=== PATIENT | male | born 1930 | race Caucasian/White ===

== ENCOUNTER 2018-05-24 11:45 | Emergency (ER) ==
[2018-05-24 11:52] VITALS: BP 182/98; TEMP 97.9; BMI 24.0
[2018-05-24] MEDS ORDERED: LIDOCAINE HCL 1% SDV SUBCUT STA (11:58)
--- NOTE | 2018-05-24 12:01 | ED.PDOC ---
General ED Provider: Dr. FRANKO PATEL Chief Complaint: Fall Stated Complaint: HEAD INJURY Time Seen by Physician: 12:00 Mode of Arrival: Wheelchair Information Source: Patient Exam Limitations: No limitations Nursing and Triage Documentation Reviewed and Agree: Yes Does patient meet sepsis criteria?: No System Inflammatory Response Syndrome: Not Applicable Sepsis Protocol: For patient's 13 years and over: Temp is 96.8 and below OR 101 and greater Pulse >90 BPM Resp >20/minute Acutely Altered Mental Status Are patient's symptoms suggestive of a new infection, such as: -Pneumonia -Skin, Soft Tissue -Endocarditis -UTI -Bone, Joint Infection -Implantable Device -Acute Abdominal Infection -Wound Infection -Meningitis -Blood Stream Catheter Infection -Unknown Skin Complaint Exam - Laceration/Head/Facial Complaint/Exam Location of Injury: Forehead Mechanism of Injury: Laceration Onset/Duration: 1 hr , NO L.O.C. Symptoms Are: Still present Initial Severity: Mild Current Severity: Mild Aggravating: None Alleviating: None Associated Signs and Symptoms: Denies: Fever, Chills, Erythema, Numbness, Tingling Differential Diagnoses: Laceration Review of Systems - Review Of Systems Constitutional: Reports: No symptoms Eyes: Reports: No symptoms Ears, Nose, Mouth, Throat: Reports: No symptoms Respiratory: Reports: No symptoms Cardiac: Reports: No symptoms GI: Reports: No symptoms : Reports: No symptoms Musculoskeletal: Reports: No symptoms Skin: Reports: Other (LACERATION FOREHEAD ) Neurological: Reports: No symptoms Endocrine: Reports: No symptoms Hematologic/Lymphatic: Reports: No symptoms All Other Systems: Reviewed and Negative Past Medical History - Past Medical History Previously Healthy: Yes Endocrine: Reports: Dyslipidemia Cardiovascular: Reports: Hypertension Respiratory: Reports: None Hematological: Reports: None Gastrointestinal: Reports: None Genitourinary: Reports: None Neuro/Psych: Reports: None Musculoskeletal: Reports: None Cancer: Reports: None - Surgical History General Surgical History: Reports: None - Family History Family History: Reports: None - Social History Smoking Status: Never smoker Hx Substance Use: No Alcohol Screening: None - Immunizations Tetanus Shot up to Date: Yes Physical Exam - Physical Exam Appearance: Well-appearing, No pain distress, Well-nourished Eyes: RAVINDRA, EOMI, Conjunctiva clear ENT: Ears normal, Nose normal, Oropharynx normal Respiratory: Airway patent, Breath sounds clear, Breath sounds equal, Respirations nonlabored Cardiovascular: RRR, Pulses normal, No rub, No murmur GI/: Soft, Nontender, No masses, Bowel sounds normal, No Organomegaly Musculoskeletal: Normal strength, ROM intact, No edema, No calf tenderness Skin: Warm, Dry (LACERATION SEE PHOTO) Neurological: Sensation intact, Motor intact, Reflexes intact, Cranial nerves intact, Alert, Oriented Psychiatric: Affect appropriate, Mood appropriate Procedures - Laceration/Wound Repair No standard instances Wound Description: Linear Wound Length (cm): 2CM Wound Width: 2MM Wound Depth: 2MM Wound Explored: Clean Wound Irrigated: No Wound Prep: Hibiclens Anesthesia: Lidocaine (PLAIN 1 ML) Wound Margins: Revised, Vermilion border aligned Wound Repaired With: Sutures Suture Size and Type: 3 PROLENE Number of Sutures: 0 Number of Millis: 0 Critical Care Note - Critical Care Note Total Time (mins): 0 Course - Course Orders, Labs, Meds: Orders Category Date Time Status Lidocaine HCl/Pf [Lidocaine HCl 1% Sdv] MEDS 05/24/18 11:58 Stat 5 ml SUBCUT ONCE STA CT CERVICAL SPINE W/O CONTRAST Stat RADS 05/24/18 11:[address] HEAD W/O CONTRAST Stat RADS 05/24/18 11:58 Ordered Medications Discontinued Medications Generic Name Dose Route Start Last Admin Trade Name Stacy PRN Reason Stop Dose Admin Lidocaine HCl 5 ml 05/24/18 11:58 Lidocaine Hcl 1% Sdv SUBCUT 05/24/18 11:59 ONCE STA Vital Signs: Temp Pulse Resp BP Pulse Ox 05/24/18 11:45 97.9 F 56 L 18 182/98 H 98 Departure - Departure Time of Disposition: 12:01 Disposition: HOME SELF-CARE Discharge Problem: Forehead laceration Qualifiers: Encounter type: initial encounter Qualified Code(s): S01.81XA - Laceration without foreign body of other part of head, initial encounter Instructions: Care For Your Stitches (DC), Laceration (ED), Head Injury (ED) Condition: Good Pt referred to PMD for follow-up: Yes IPMP verified?: No Additional Instructions: Please call your Family Physician as soon as possible to schedule a follow-up appointment. Allergies/Adverse Reactions: Allergies No Known Allergies Allergy (Unverified 05/24/18 11:52)
--- NOTE | 2018-05-24 12:30 | CT ---
EXAM: CT scan of the cervical spine without contrast HISTORY: Injury TECHNIQUE: Helical imaging of the cervical spine was performed without contrast. Sagittal and coron al reconstructions and axial images were provided for interpretation. FINDINGS: The occipital condyles, C1 ring appear intact. No acute abnormalities are seen within the odontoid process and C2 vertebral body. The spinous processes are intact. The prevertebral soft ti ssues are normal. There is a normal alignment of the facet joints. No acute fractures are seen. IMPRESSION: No evidence of acute fracture dislocation seen within the cervical spine.
--- NOTE | 2018-05-24 12:33 | CT ---
EXAM: CT scan of the head without contrast HISTORY: Injury TECHNIQUE: Helical imaging of the head was performed without contrast. 5 mm thin axial images and c oronal and sagittal images were provided for interpretation. Low density changes are seen within the supratentorial white matter. No acute hemorrhages are seen. There is no mass effect. There are no extraaxial collections. The basal cisterns are patent. The paranasal sinuses and mastoid air cells are clear. The calvarium and extracranial soft tissues are n ormal. IMPRESSION: No acute traumatic abnormalities are seen. 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
== END 2018-05-24 12:50 | disposition home or self-care (01) ==
LOC: ED 11:45
DX: S01.81XA Laceration without foreign body of other part of head, initial encounter (principal); W19.XXXA Unspecified fall, initial encounter
CPT/HCPCS: 99283